=== PATIENT | male | born 2000 | race Caucasian/White ===

== ENCOUNTER 2018-01-15 11:17 | Emergency (ER) | payer BC ==
[~2018-01-15] VITALS: Ht 170.2 cm; Wt 83.2 kg
[2018-01-15 11:30] VITALS: BP 113/79
[2018-01-15 14:05] VITALS: BP 120/68
== END 2018-01-15 14:04 | disposition home or self-care (01) ==
LOC: MED 11:17
DX: S13.9XXA Sprain of joints and ligaments of unspecified parts of neck, initial encounter (principal); S40.012A Contusion of left shoulder, initial encounter; S70.01XA Contusion of right hip, initial encounter; V43.52XA Car driver injured in collision with other type car in traffic accident, initial encounter; Y93.89 Activity, other specified; Y92.89 Other specified places as the place of occurrence of the external cause; Y99.8 Other external cause status
CPT/HCPCS: 72050; 72170; 73030; 99284

== ENCOUNTER 2018-10-12 13:24 | Emergency (ER) | payer BC ==
[~2018-10-12] VITALS: Ht 170.2 cm; Wt 86.2 kg
[2018-10-12 13:25] VITALS: BP 126/70
--- NOTE | 2018-10-12 13:25 | NUR ---
PATIENT AMBULATED TO ER BED 4.
--- NOTE | 2018-10-12 13:30 | NUR ---
PT BIB SELF TO THE ED WITH THE CHIEF C/O PAIN ON POSTERIOR HEAD, RIGHT NECK AND RIGHT ANKLE. PER PT, HE WAS SKATING AND OVER PRESSURED ON HIS RIGHT LEG A MONTH AGO. STARTED P[AIN ON RIGHT ANKLE SINCE THEN. NOT SEEN BY DOCTOR. PT FELL AGAIN YESTERDAY DURING SKATTING, HIT HIS HEAD. DENIES ALOC, DENIES NAUSEA, VOMITING, DIZZINESS. BUMP NOTED ON POSTERIOR HEAD. NO SKIN TEAR NOTED. STATES PAIN 4/10 AT THIS TIME.
--- NOTE | 2018-10-12 13:53 | NUR ---
XRAY AT BEDSIDE FOR INTERVENTION.
--- NOTE | 2018-10-12 14:15 | NUR ---
PT BEING EVALUATED BY ER AT THIS TIME.
--- NOTE | 2018-10-12 14:18 | NUR ---
Patient discharged with v/s stable. Written and verbal after care instructions given and explained. Patient alert, oriented and verbalized understanding of instructions. Ambulatory with steady gait. All questions addressed prior to discharge. ID band removed. Patient advised to follow up with PMD. Rx of NAPROSYN 500 MG given. Patient educated on indication of medication including possible reaction and side effects. Opportunity to ask questions provided and answered. Addendum: 10/12/18 at 1421 by ELVIA DISCHARGE INSTRUCTION WAS PROVIDED BY RASHAUN COLUNGA.
[2018-10-12 14:20] VITALS: BP 120/70
== END 2018-10-12 14:17 | disposition home or self-care (01) ==
LOC: MED 13:24
DX: S93.401A Sprain of unspecified ligament of right ankle, initial encounter (principal); S00.03XA Contusion of scalp, initial encounter; V00.131A Fall from skateboard, initial encounter; Y93.51 Activity, roller skating (inline) and skateboarding; Y92.89 Other specified places as the place of occurrence of the external cause; Y99.8 Other external cause status
CPT/HCPCS: 73610; 99283; Q0092